=== PATIENT | female | born 1970 | race Caucasian/White ===

== ENCOUNTER 2019-02-15 06:49 | Emergency (ER) | payer BC, OTHER ==
[2019-02-15 07:01] VITALS: TEMP 98.5; BMI 25.0
[2019-02-15] MEDS ORDERED: ASPIRIN 81 MG CHEWABLE TABLETS PO ONE (07:19)
[2019-02-15] MEDS ORDERED: ASPIRIN 325 MG TABLET ONE (07:24)
--- NOTE | 2019-02-15 08:17 | PDOC ---
History of Present Illness - General Chief Complaint: Pain, Acute Stated Complaint: PRESSURE IN CHEST, ABDOMEN X 2 WEEKS Time Seen by Provider: 02/15/19 07:15 History Source: Patient Exam Limitations: No Limitations - History of Present Illness Initial Comments: 02/15/19 08:12 Healthy 48-year-old female with no significant past medical history other than GERD, anxiety, on supplemental estrogen for history of prophylactic bilateral oophorectomy presents now with episode of chest pain or palpitations while at the gym. Patient was in her usual state of normal health, has admittedly been slightly more anxious and stressed lately, mostly surrounding an upcoming work- related trip to [place] for which she is leaving tomorrow. In the setting, patient has been having some GERD-related symptoms in the middle of the night, spontaneously resolved. This morning, while running on a treadmill at the gym, started developing substernal chest pain that radiated to her back, associated with palpitations and difficulty breathing. The patient was able to continue and complete her work out but felt like she couldn't catch her breath, her heart rate was measured at the gym and was around 150-160. She presents here for evaluation, the substernal chest pain has resolved but she has some residual right thoracic discomfort going to her back. She no longer feels short of breath or has palpitations. No previous exertional limitations. In fact, she was at the gym yesterday and completed her entire workout without difficulty. No cough, no fevers or chills, no recent symptoms of DVT. No recent travel or immobilization. Does not smoke, no drugs, no family history of clots or early heart/stroke disease. Past History - Past Medical History Allergies/Adverse Reactions: Allergies Allergy/AdvReac Type Severity Reaction Status Date / Time gluten Allergy Verified 02/15/19 06:51 Home Medications: Ambulatory Orders Estrogen 2 mg PO DAILY 02/15/19 Fluoxetine HCl [Prozac] 20 mg PO DAILY 02/15/19 LORazepam [Ativan] 0.25 mg PO HS 02/15/19 Asthma: No Cancer: No Cardiac Disorders: No COPD: No Diabetes: No HTN: No Seizures: No Thyroid Disease: No Other medical history: ANXIETY/DEPRESSION - Suicide/Smoking/Psychosocial Hx Smoking History: Never smoked Have you smoked in the past 12 months: No Information on smoking cessation initiated: No Hx Alcohol Use: Yes (SOCIAL) Drug/Substance Use Hx: No Hx Substance Use Treatment: No Review of Systems - Review of Systems Constitutional: No: Chills, Fever, Night Sweats Respiratory: Yes: Shortness of Breath. No: Cough Cardiac (ROS): Yes: Chest Pain, Palpitations. No: Edema, Syncope ABD/GI: No: Diarrhea, Nausea, Vomiting : Yes: Dysuria. No: Flank Pain, Hematuria Neurological: No: Headache All Other Systems: Reviewed and Negative *Physical Exam - Vital Signs Last Vital Signs Temp Pulse Resp BP Pulse Ox 98.5 F 74 16 124/82 100 02/15/19 06:57 02/15/19 06:57 02/15/19 06:57 02/15/19 06:57 02/15/19 06:57 - Physical Exam Comments: 02/15/19 08:16 Vital signs normal GENERAL: The patient is awake, alert, and fully oriented, in no acute distress. Occasionally tearful when describing the pain. HEAD: Normal with no signs of trauma. EYES: PERRL, EOMI, sclera anicteric, conjunctiva clear with no pallor. ENT: oropharynx clear. Moist mucous membranes. NECK: Normal range of motion, supple without JVD or masses. LUNGS: Breath sounds equal, clear to auscultation bilaterally. No wheeze/ crackles. HEART: Regular slight bradycardia, normal S1 and S2 without murmur or rub. ABDOMEN: Soft/nontender/nondistended. BS wnl. No guarding or rebound. No palpable masses. No hepatosplenomegaly. EXTREMITIES: Normal range of motion, no edema. 2+ distal pulses. No cords, erythema, or tenderness. NEUROLOGICAL: Cranial nerves II through XII grossly intact. Normal speech, normal gait. PSYCH: Slightly anxious and tearful, otherwise normal mood, normal affect. SKIN: Warm, Dry, no rashes or lesions noted. Moderate Sedation - Procedure Monitoring Vital Signs: Procedure Monitoring Vital Signs Temperature 98.5 F 02/15/19 06:57 Pulse Rate 74 02/15/19 06:57 Respiratory Rate 16 02/15/19 06:57 Blood Pressure 124/82 02/15/19 06:57 O2 Sat by Pulse Oximetry (%) 100 02/15/19 06:57 Heart Score/ECG Review - History History: Moderately suspicious - Electrocardiogram EKG: Normal - Age Age: 45-65 - Risk Factors Based on the list above the patient has:: No risk factors known - Troponin Troponin: </= normal limit - Score Heart Score - Total: 2 #1 ECG reviewed & interpreted by me at: 07:40 General ECG Interpretation: Sinus Rhythm, Normal Rate (51), Normal Intervals ( qtc 418, SD 92 without obvious delta wave), No acute ischemic changes Compared to previous ECG there are: Previous ECG unavail ED Treatment Course - LABORATORY CBC & Chemistry Diagram: 02/15/19 08:00 02/15/19 08:00 - RADIOLOGY Radiology Studies Ordered: Category Date Time Status CHEST PA & LAT [RAD] Stat Radiology 02/15/19 07:20 Ordered - Medications Given in the ED: ED Medications Discontinued Medications Generic Name Dose Route Start Last Admin Trade Name Freq PRN Reason Stop Dose Admin Aspirin 325 mg 02/15/19 07:19 02/15/19 07:26 Asa - PO 02/15/19 07:20 325 mg ONCE ONE Administration Medical Decision Making - Medical Decision Making 02/15/19 08:20 48-year-old female with no significant ACS risk factors presents with overall low risk chest pain despite the exertional component. Had normal stress one year ago and previous unlimited exercise tolerance. On estrogen, so cannot rule out PE clinically. Anxiety/GERD also on ddx. labs including ddimer. Heart score 2, consistent with low risk, so will check trop x2. ekg without acute ischemia. short SD, ? subclinical WPW but no delta wave here. cxr reassess 02/15/19 11:46 has remained asx throughout ED stay. labs wnl, including trop x2. ddimer negative on my prelim review, cxr without acute pathology. can be managed as outpatient with cardiology referral, discussed considering EP study given short SD, understands return criteria. agrees with d/c plan, all questions answered, feels very reassured. *DC/Admit/Observation/Transfer Diagnosis at time of Disposition: Precordial chest pain - Discharge Dispostion Disposition: HOME Condition at time of disposition: Improved - Referrals Referrals: Hermann Aguilar MD [Staff Physician] - - Patient Instructions Printed Discharge Instructions: DI for Chest Pain, DI for Atypical Chest Pain Additional Instructions: Activity as tolerated. Stay hydrated. As discussed, blood tests, an EKG, and a chest xray showed no acute abnormalities. The pain does not appear to have been caused by any sudden heart event. As discussed, pursue further cardiology testing to make sure there are no arrhythmias. Anxiety/panic attach could have also been the cause. Continue your medications as previously prescribed by your physician. You should follow up with your primary doctor and a moth exterminator (consider calling Dr. Aguilar) as soon as possible regarding today's emergency department visit. Return to the emergency department for any new or concerning symptoms, particularly persistent or worsening pain, difficulty breathing, persistent palpitations. - Post Discharge Activity
[2019-02-15 08:36] LABS: BASO % 0.4 % (0-2.0); EOS % 1.5 % (0-4.5); HEMATOCRIT 39.1 % (32.4-45.2); HEMOGLOBIN 13.5 GM/dl (10.7-15.3); LYMPH % 17.1 % (8-40); MCH 31.8 pg (25.7-33.7); MCHC 34.5 g/dl (32.0-36.0); MEAN CELL VOLUME 92.2 fl (80-96); MEAN PLT VOLUME 9.5 fl (7.5-11.1); MONO % 7.9 % (3.8-10.2); NEUT % 73.1 % (42.8-82.8); PLATELET COUNT 191 K/MM3 (134-434); RBC 4.24 M/mm3 (3.60-5.2); WHITE BLOOD COUNT 5.5 K/mm3 (4.0-10.8)
[2019-02-15 08:44] LABS: ALBUMIN 4.1 g/dl (3.4-5.0); ALK PHOS 48 U/L (45-117); ANION GAP 7 MMOL/L (8-16); BLOOD UREA NITROGEN 13 mg/dl (7-18); CALCIUM 8.8 mg/dl (8.5-10); CHLORIDE 99 mmol/L (98-107); CO2 28 mmol/L (21-32); CREATININE 0.8 mg/dl (0.55-1.3); GLUCOSE,RANDOM 102 mg/dl (74-106); SGOT/AST 24 U/L (15-37); SGPT/ALT 18 U/L (13-61); SODIUM 134 mmol/L (136-145); TOT PROT 6.3 g/dl (6.4-8.2)
[2019-02-15 08:50] LABS: HCG,QUALITATIVE URINE NEGATIVE; URINE APPEARANCE CLEAR; URINE BILIRUBIN NEGATIVE (NEGATIVE); URINE COLOR YELLOW; URINE GLUCOSE (UA) NEGATIVE (NEGATIVE); URINE KETONE NEGATIVE (NEGATIVE); URINE LEUK ESTERASE NEGATIVE (NEGATIVE); URINE NITRITE NEGATIVE (NEGATIVE); URINE PROTEIN NEGATIVE (NEGATIVE); URINE UROBILINOGEN 0.2 (0.2-1.0)
[2019-02-15 09:00] LABS: INR 1.17 (0.82-1.09); PROTHROMBIN TIME (PATIENT) 13.1 SEC (10.2-13.0)
--- NOTE | 2019-02-15 10:44 | EKG ---
Test Reason : Blood Pressure : / mmHG Vent. Rate : 051 BPM Atrial Rate : 051 BPM P-R Int : 092 ms QRS Dur : 090 ms QT Int : 454 ms P-R-T Axes : 020 069 040 degrees QTc Int : 418 ms POOR DATA QUALITY, INTERPRETATION MAY BE ADVERSELY AFFECTED SINUS BRADYCARDIA WITH SHORT LA OTHERWISE NORMAL ECG NO PREVIOUS ECGS AVAILABLE Confirmed by Darrius Cast MD ([id number]) on 02/15/2019 10:44:04 AM Referred By: MARLA BARR Confirmed By:Darrius Cast MD
[2019-02-15 11:42] VITALS: BP 110/67; PULSE 65
== END 2019-02-15 12:00 | disposition home or self-care (01) ==
LOC: FER 06:49
DX: R07.89 Other chest pain (principal); I24.9 Acute ischemic heart disease, unspecified
CPT/HCPCS: 36415; 71046-TC-FY; 80053; 81003; 83735; 84484; 84703; 85025; 85379; 85610; 93005; 99283-25